=== PATIENT | female | born 2005 | race Caucasian/White ===

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

== ENCOUNTER 2024-10-06 15:09 | Emergency (ER) | payer OTHER ==
[2024-10-06 15:30] VITALS: RESP 18
--- NOTE | 2024-10-06 16:21 | ED ---
Female Urogenital HPI - General Source: patient, family, RN notes reviewed Mode of arrival: ambulatory Limitations: no limitations <Lex Whaley - Last Filed: 10/06/24 16:19> <Judith Adkins - Last Filed: 10/07/24 10:18> - General Chief complaint: Vaginal Bleeding Stated complaint: Vaginal bleeding Time Seen by Provider: 10/06/24 15:23 - History of Present Illness Initial comments: Quick note: This is a 19-year-old female presenting for vaginal bleeding x 1 day. Patient states she had a 3 months ago with associated abdominal pain around section scar with pain radiating to back. Patient states she is passing blood clots as well. (Lex Whaley) This is a 19-year-old female presenting to the emergency department from [facility] with concerns for vaginal bleeding that started this morning. Patient states that she had a section over 3 months ago and started experiencing heavy vaginal bleeding today. She states that since she has been in the waiting room the vaginal bleeding has significantly decreased. At this time patient states that she is feeling well and denies abdominal pain, suprapubic cramping, fevers, chills, nausea, vomiting. States that she was informed by rehabilitation center to report to emergency department for further evaluation.that she is feeling well. (Judith Adkins) - Related Data Previous Rx's Medication Instructions Recorded Doxycycline [Vibramycin] 100 mg PO BID 7 Days #14 capsule 10/15/22 valACYclovir HCL [Valtrex] 1,000 mg PO BID 10 Days #20 tablet 10/15/22 Allergies Allergy/AdvReac Type Severity Reaction Status Date / Time No Known Allergies Allergy Verified 10/06/24 15:29 Review of Systems ROS Other: All systems not noted in ROS Statement are negative. <Lex Whaley - Last Filed: 10/06/24 16:19> ROS Other: All systems not noted in ROS Statement are negative. <Judith Adkins - Last Filed: 10/07/24 10:18> ROS Statement: Those systems with pertinent positive or pertinent negative responses have been documented in the HPI. Past Medical History Past Medical History: Asthma History of Any Multi-Drug Resistant Organisms: None Reported Past Surgical History: Section Past Psychological History: No Psychological Hx Reported Smoking Status: Current every day smoker, Vaper Past Alcohol Use History: None Reported Past Drug Use History: None Reported <Lex Whaley - Last Filed: 10/06/24 16:19> General Exam <Lex Whaley - Last Filed: 10/06/24 16:19> General appearance: alert, in no apparent distress Respiratory exam: Present: normal lung sounds bilaterally. Absent: respiratory distress, wheezes, rales, rhonchi, stridor Cardiovascular Exam: Present: regular rate, normal rhythm, normal heart sounds. Absent: systolic murmur, diastolic murmur, rubs, gallop, clicks GI/Abdominal exam: Present: soft, normal bowel sounds. Absent: distended, tenderness, guarding, rebound, rigid Extremities exam: Present: normal inspection, full ROM, normal capillary refill. Absent: tenderness, pedal edema, joint swelling, calf tenderness Back exam: Present: normal inspection. Absent: CVA tenderness (R), CVA tenderness (L) <Judith Adkins - Last Filed: 10/07/24 10:18> - General Exam Comments Initial Comments: Visual Physical Exam Vital signs reviewed General: Well-appearing, nontoxic, no acute distress. Head: Normocephalic, atraumatic Eyes: PERRLA, EOMI ENT: Airway patent Chest: Nonlabored breathing Skin: No visual rash, normal skin tone Neuro: Alert and oriented 3 Musculoskeletal: No gross abnormalities (Lex Whaley) Course Vital Signs 10/06/24 10/06/24 15:27 19:26 Temperature 98 F 97.8 F Pulse Rate 81 99 Respiratory 18 18 Rate Blood Pressure 126/78 150/94 O2 Sat by Pulse 97 98 Oximetry Medical Decision Making <Lex Whaley - Last Filed: 10/06/24 16:19> - Lab Data Result diagrams: 10/06/24 17:12 10/06/24 17:12 <Judith Adkins - Last Filed: 10/07/24 10:18> - Medical Decision Making I completed the quick note portion of this chart signed KEYONNA Gunn (Lex Whaley) Was pt. sent in by a medical professional or institution ([facility]IE Guy, [employer], urgent care, hospital, or [facility]...) When possible be specific @ -No Did you speak to anyone other than the patient for history (EMS, parent, family, police, friend...)? What history was obtained from this source @ -No Did you review nursing and triage notes (agree or disagree)? Why? @ -I reviewed and agree with nursing and triage notes Were old charts reviewed (outside hosp., previous admission, EMS record, old EKG, old radiological studies, urgent care reports/EKG's, [facility] records)? Report findings @ -No old charts were reviewed Differential Diagnosis (chest pain, altered mental status, abdominal pain women, abdominal pain men, vaginal bleeding, weakness, fever, dyspnea, syncope, headache, dizziness, GI bleed, back pain, seizure, CVA, palpatations, mental health, musculoskeletal)? @ -Differential Vaginal Bleeding: Spontaneous , threatened , molar , ectopic , bloody show, incompetent cervix, abruptioplacenta, placenta previa, uterine rupture, dysfunctional uterine bleeding, hemorrhage, uterine fibroids, this is not meant to be an all-inclusive list. EKG interpreted by me (3pts min.). @ -None X-rays interpreted by me (1pt min.). @ -None done CT interpreted by me (1pt min.). @ -None done U/S interpreted by me (1pt. min.). @ -Transvaginal ultrasound reveals a small amount of free fluid with no evidence of bilateral ovarian torsion. What testing was considered but not performed or refused? (CT, X-rays, U/S, labs)? Why? @ -None What meds were considered but not given or refused? Why? @ -None Did you discuss the management of the patient with other professionals (professionals i.e. , PA, [employer] MAG[employer]RATE, lab, RT, psych nurse, criminal justice social worker, clothing worker, teacher, hospital chief executive officer, caser shoe parts)? Give summary @ -No Was smoking cessation discussed for >3mins.? @ -No Was critical care preformed (if so, how long)? @ -No Were there social determinants of health that impacted care today? How? (Homelessness, low income, unemployed, alcoholism, drug addiction, transportation, low edu. Level, literacy, decrease access to med. care, usp, r ehab)? @ -No Was there de-escalation of care discussed even if they declined (Discuss DNR or withdrawal of care, Hospice)? DNR status @ -No What co-morbidities impacted this encounter? (DM, HTN, Smoking, COPD, CAD, Cancer, CVA, ARF, Chemo, Hep., AIDS, mental health diagnosis, sleep apnea, morbid obesity)? @ -None Was patient admitted / discharged? Hospital course, mention meds given and route, prescriptions, significant lab abnormalities, going to OR and other pertinent info. @ -Discharge. 19-year-old female presenting with vaginal bleeding. Patient was originally evaluated in the emergency department waiting room as a quick note where ultrasound and lab testing is ordered. My evaluation the patient to the sitting comfortably in examination bed in no signs of distress. Abdominal examination is unremarkable. Patient states that since she has been in the emergency department her bleeding has significantly decreased and states she is feeling well. Her vital signs are stable. Patient's labs reveal a stable hemoglobin with a level of 16.1. Coags and CMP is unremarkable. Urinalysis reveals no signs infection, red cells consistent with vaginal bleeding. hCG is negative. Ultrasound imaging is unremarkable. Patient is stable for discharge back to [facility]. Recommend follow-up with gynecology for further evaluation. Case discussed with my attending Dr. Larson. Undiagnosed new problem with uncertain prognosis? @ -No Drug Therapy requiring intensive monitoring for toxicity (Heparin, Nitro, Insulin, Cardizem)? @ -No Were any procedures done? @ -No Diagnosis/symptom? @ -Vaginal bleeding, menorrhagia Acute, or Chronic, or Acute on Chronic? @ -Acute Uncomplicated (without systemic symptoms) or Complicated (systemic symptoms)? @ -Uncomplicated Side effects of treatment? @ -No Exacerbation, Progression, or Severe Exacerbation? @ -No Poses a threat to life or bodily function? How? (Chest pain, [place], [place], pneumonia, PE, COPD, DKA, ARF, appy, cholecystitis, CVA, Diverticulitis, Homicidal, Suicidal, threat to staff... and all critical care pts) @ -No (Judith Adkins) - Lab Data Lab Results 10/06/24 10/06/24 10/06/24 Range/Units 17:12 17:12 17:12 WBC 14.85 H (4.50-10.00) 10*3/uL RBC 5.15 (4.10-5.20) 10*6/uL Hgb 16.1 H (12.0-15.0) g/dL Hct 47.9 H (37.2-46.3) % MCV 93.0 (80.0-97.0) fL MCH 31.3 (27.0-32.0) pg MCHC 33.6 (32.0-37.0) g/dL Plt Count 332 (140-440) 10*3/uL MPV 9.7 (9.5-12.2) fL Immature Gran % (Auto) 0.6 % Neutrophils % 63.7 % Lymphocytes % 28.8 % Monocytes % 5.1 % Eosinophils % 1.5 % Basophils % 0.3 % Immature Gran # 0.09 H (0.00-0.04) 10*3/uL Neutrophils # 9.46 H (1.80-7.70) 10*3/uL Lymphocytes # 4.28 (0.90-5.00) 10*3/uL Monocytes # 0.75 (0.20-1.00) 10*3/uL Eosinophils # 0.22 (0.04-0.35) 10*3/uL Basophils # 0.05 (0.00-0.10) 10*3/uL PT 10.7 (10.0-12.5) sec INR 1.0 (<1.2) APTT 23.2 (22.0-30.0) sec Sodium 140 (137-145) mmol/L Potassium 4.7 (3.5-5.1) mmol/L Chloride 107 (98-107) mmol/L Carbon Dioxide 18 L (22-30) mmol/L Anion Gap 15 mmol/L BUN 15 (7-17) mg/dL Creatinine 0.63 (0.52-1.04) mg/dL Est GFR (CKD-EPI)AfAm >90 (>60 ml/min/1.73 sqM) Est GFR (CKD-EPI)NonAf >90 (>60 ml/min/1.73 sqM) Glucose 94 (74-99) mg/dL Calcium 10.6 H (8.4-10.2) mg/dL Total Bilirubin 0.6 (0.2-1.3) mg/dL AST 43 H (14-36) U/L ALT 44 H (4-34) U/L Alkaline Phosphatase 79 (38-126) U/L Total Protein 8.0 (6.3-8.2) g/dL Albumin 5.0 (3.5-5.0) g/dL Urine Color Urine Appearance (Clear) Urine pH (5.0-8.0) Ur Specific [place] (1.001-1.035) Urine Protein (Negative) Urine Glucose (UA) (Negative) Urine Ketones (Negative) Urine Blood (Negative) Urine Nitrite (Negative) Urine Bilirubin (Negative) Urine Urobilinogen (<2.0) mg/dL Ur Leukocyte Esterase (Negative) Urine RBC (0-5) /hpf Urine WBC (0-5) /hpf Ur Squamous Epith Cells (0-4) /hpf Urine Mucus (None) /hpf Urine HCG, Qual (Not Detectd) 10/06/24 10/06/24 Range/Units 18:16 18:16 WBC (4.50-10.00) 10*3/uL RBC (4.10-5.20) 10*6/uL Hgb (12.0-15.0) g/dL Hct (37.2-46.3) % MCV (80.0-97.0) fL MCH (27.0-32.0) pg MCHC (32.0-37.0) g/dL Plt Count (140-440) 10*3/uL MPV (9.5-12.2) fL Immature Gran % (Auto) % Neutrophils % % Lymphocytes % % Monocytes % % Eosinophils % % Basophils % % Immature Gran # (0.00-0.04) 10*3/uL Neutrophils # (1.80-7.70) 10*3/uL Lymphocytes # (0.90-5.00) 10*3/uL Monocytes # (0.20-1.00) 10*3/uL Eosinophils # (0.04-0.35) 10*3/uL Basophils # (0.00-0.10) 10*3/uL PT (10.0-12.5) sec INR (<1.2) APTT (22.0-30.0) sec Sodium (137-145) mmol/L Potassium (3.5-5.1) mmol/L Chloride (98-107) mmol/L Carbon Dioxide (22-30) mmol/L Anion Gap mmol/L BUN (7-17) mg/dL Creatinine (0.52-1.04) mg/dL Est GFR (CKD-EPI)AfAm (>60 ml/min/1.73 sqM) Est GFR (CKD-EPI)NonAf (>60 ml/min/1.73 sqM) Glucose (74-99) mg/dL Calcium (8.4-10.2) mg/dL Total Bilirubin (0.2-1.3) mg/dL AST (14-36) U/L ALT (4-34) U/L Alkaline Phosphatase (38-126) U/L Total Protein (6.3-8.2) g/dL Albumin (3.5-5.0) g/dL Urine Color Light Yellow Urine Appearance Clear (Clear) Urine pH 6.0 (5.0-8.0) Ur Specific [place] 1.021 (1.001-1.035) Urine Protein Trace H (Negative) Urine Glucose (UA) Negative (Negative) Urine Ketones Negative (Negative) Urine Blood Large H (Negative) Urine Nitrite Negative (Negative) Urine Bilirubin Negative (Negative) Urine Urobilinogen <2.0 (<2.0) mg/dL Ur Leukocyte Esterase Trace H (Negative) Urine RBC >182 H (0-5) /hpf Urine WBC 12 H (0-5) /hpf Ur Squamous Epith Cells 1 (0-4) /hpf Urine Mucus Rare H (None) /hpf Urine HCG, Qual Not Detected (Not Detectd) Disposition <Lex Whaley - Last Filed: 10/06/24 16:19> Is patient prescribed a controlled substance at d/c from ED?: No Time of Disposition: 18:57 <Judith Adkins - Last Filed: 10/07/24 10:18> Clinical Impression: Menorrhagia Disposition: HOME SELF-CARE Condition: Good Instructions (If sedation given, give patient instructions): Menorrhagia (ED) Additional Instructions: Please return to the Emergency Department if symptoms worsen or any other concerns. Referrals: Mark Wagner MD [Primary Care Provider] - 1-2 days
--- NOTE | 2024-10-06 17:11 | US ---
EXAMINATION TYPE: US transvaginal DATE OF EXAM: 10/06/2024 COMPARISON: NONE CLINICAL INDICATION: Female, 19 years old with history of Vaginal bleeding post ; Bleeding h ad c section 3 months ago. TECHNIQUE: Transvaginal (TV). FINDINGS: EXAM MEASUREMENTS: Uterus: 6.7 x 3.5 x 4.7 cm Endometrial Stripe: .4 cm Right Ovary: 2.5 x 3.0 x 3.8 cm Left Ovary: 2.1 x 1.4 x 2.4 cm 1. Uterus: Anteverted Fluid visualized TOM. 2. Endometrium: wnl 3. Right Ovary: wnl 4. Left Ovary: wnl Spectral, color and waveform doppler imaging shows good arterial and venous flow within the ovaries ; there is no evidence for ovarian torsion. 5. Bilateral Adnexa: wnl 6. Posterior cul-de-sac: Small amount of fluid seen. IMPRESSION: Small amount of free fluid. O-RADS 2021 [email or web address] [facility], , 10/06/2024 5:08 PM
[2024-10-06 17:33] LABS: Basophils # (A) 0.05 10*3/uL (0.00-0.10); Basophils % (A) 0.3 %; Eosinophils # (A) 0.22 10*3/uL (0.04-0.35); Eosinophils % (A) 1.5 %; HCT 47.9 % (37.2-46.3); HGB 16.1 g/dL (12.0-15.0); Lymphocytes # (A) 4.28 10*3/uL (0.90-5.00); Lymphocytes % (A) 28.8 %; MCH 31.3 pg (27.0-32.0); MCHC 33.6 g/dL (32.0-37.0); MCV 93.0 fL (80.0-97.0); Monocytes # (A) 0.75 10*3/uL (0.20-1.00); Monocytes % (A) 5.1 %; Neutrophils # (A) 9.46 10*3/uL (1.80-7.70); Neutrophils % (A) 63.7 %; Platelet Count 332 10*3/uL (140-440); RBC 5.15 10*6/uL (4.10-5.20); RDW 13.0 % (11.5-14.5); WBC 14.85 10*3/uL (4.50-10.00)
[2024-10-06 17:59] LABS: INR 1.0 (<1.2); Partial Thromboplastin Time 23.2 sec (22.0-30.0); Prothrombin Time 10.7 sec (10.0-12.5)
[2024-10-06 18:00] LABS: ALT 44 U/L (4-34); AST 43 U/L (14-36); African American GFR (CKD) >90 (>60 ml/min/1.73 sqM); Albumin 5.0 g/dL (3.5-5.0); Alkaline Phosphatase 79 U/L (38-126); Anion Gap 15 mmol/L; Blood Urea Nitrogen 15 mg/dL (7-17); Calcium 10.6 mg/dL (8.4-10.2); Carbon Dioxide 18 mmol/L (22-30); Chloride 107 mmol/L (98-107); Glucose 94 mg/dL (74-99); Non-African American GFR(CKD) >90 (>60 ml/min/1.73 sqM); Potassium 4.7 mmol/L (3.5-5.1); Sodium 140 mmol/L (137-145); Total Protein 8.0 g/dL (6.3-8.2)
[2024-10-06 18:49] LABS: Bilirubin,Urine Negative (Negative); Blood,Urine Large (Negative); Color,Urine Light Yellow; Glucose,Urine (UA) Negative (Negative); Ketones,Urine Negative (Negative); Leukocyte Esterase,Urine Trace (Negative); Mucus,Urine Rare /hpf; Nitrite,Urine Negative (Negative); PH, Urine 6.0 (5.0-8.0); Protein,Urine Trace (Negative); RBC,Urine >182 /hpf (0-5); Specific Gravity,Urine 1.021 (1.001-1.035); Squamous Epithelial Cell,Urine 1 /hpf (0-4); Urobilinogen,Urine <2.0 mg/dL (<2.0); WBC,Urine 12 /hpf (0-5)
[2024-10-06 19:28] VITALS: BP 150/94; PULSE 99; TEMP 97.8
== END 2024-10-06 19:26 | disposition home or self-care (01) ==
LOC: EC 15:09
DX: N92.0 Excessive and frequent menstruation with regular cycle (principal); F17.290 Nicotine dependence, other tobacco product, uncomplicated
CPT/HCPCS: 36415; 76830; 80053; 81001; 81025; 85025; 85610; 85730; 87086; 93975; 99284